=== PATIENT | female | born 1940 | race Caucasian/White ===

== ENCOUNTER 2018-02-19 19:05 | Emergency (ER) | payer OTHER, MEDICARE, BC ==
[2018-02-19] MEDS ORDERED: Acetaminophen/HYDROcodone 325-10 MG Tab PO ONE ×2 (19:06→19:58)
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
[2018-02-19 19:30] LABS: CHLORIDE,CL 103 mmol/L (98-109); SODIUM,NA 144 mmol/L (138-146)
[2018-02-19] MEDS ORDERED: Acetaminophen/HYDROcodone 325-10 MG Tab ONE (20:56)
== END 2018-02-19 21:16 | disposition home or self-care (01) ==
LOC: DL.ED 19:05
DX: S22.43XA Multiple fractures of ribs, bilateral, initial encounter for closed fracture (principal); M25.462 Effusion, left knee; V43.52XA Car driver injured in collision with other type car in traffic accident, initial encounter; Z79.899 Other long term (current) drug therapy
CPT/HCPCS: 36415; 70450; 71250; 72125; 73560; 74176; 80048; 84484; 85025; 93005; 99285; A9270

== ENCOUNTER 2018-12-07 19:07 | Emergency (ER) | payer MEDICARE, BC ==
[2018-12-07] MEDS ORDERED: methylPREDNISolone Sodium Succinate 125 MG/2 ML SDV IM ONE (19:41)
[2018-12-07] MEDS ORDERED: Acetaminophen 325 MG Tab PO ONE (19:44)
--- NOTE | 2018-12-07 19:44 | EDM.PDOC ---
ED HPI GENERAL MEDICAL PROBLEM - General Chief Complaint: General Stated Complaint: LEFT SIDE PAIN [id number] Time Seen by Provider: 12/07/18 19:30 Source of Information: Reports: Patient, Family, RN, RN Notes Reviewed History Limitations: Reports: No Limitations - History of Present Illness INITIAL COMMENTS - FREE TEXT/NARRATIVE: Pt to ER with c/o pain to the low back, left hip radiating through the groin and down the anterior left thigh. She states it began about 1100 today while she was sitting. Patient states she has not had this pain before. She rates the pain 04/09. Patient states she took Tylenol about 1100. She denies any trauma, falls. She states she takes Plavix for a stroke in the past. Patient denies N/ V. States she struggles with diarrhea and bowel issues regularly. Patient denies fever or chills. Onset: Today, Sudden Duration: Intermittent Location: Reports: Back, Lower Extremity, Left Quality: Reports: Sharp, Stabbing Severity: Moderate Improves with: Reports: None Worsens with: Reports: None Associated Symptoms: Reports: No Other Symptoms Treatments QUILL CLEANER: Reports: Acetaminophen Left Groin Pain Score (Numeric/FACES): 8 - Related Data Allergies Allergy/AdvReac Type Severity Reaction Status Date / Time No Known Allergies Allergy Verified 12/07/18 19:16 Home Meds: Home Meds Calcium Carbonate/Vitamin D3 [Calcium 500-Vit D3 600 Tablet] 1 each PO BID 02/19 [History] Clopidogrel [Plavix] 75 mg PO DAILY 02/19/18 [History] Furosemide 20 mg PO ASDIRECTED 02/19/18 [History] Labetalol HCl [Labetalol] 400 mg PO BID 02/19/18 [History] Levothyroxine 112 mcg PO ACBREAKFAST 02/19/18 [History] Lisinopril 40 mg PO BID 02/19/18 [History] Multivitamin [Daily Multiple Vitamin] 1 tab PO DAILY 02/19/18 [History] Potassium Chloride [Klor-Con M20] 20 meq PO BID 02/19/18 [History] Psyllium Husk [Metamucil] 660 gm PO DAILY 02/19/18 [History] Simvastatin [Zocor] 40 mg PO BEDTIME 02/19/18 [History] amLODIPine Besylate [Amlodipine Besylate] 10 mg PO DAILY 02/19/18 [History] hydroCHLOROthiazide [Hydrochlorothiazide] 12.5 mg PO DAILY 02/19/18 [History] ED ROS GENERAL - Review of Systems Review Of Systems: ROS reveals no pertinent complaints other than HPI. ED EXAM, GENERAL - Physical Exam Exam: See Below Exam Limited By: No Limitations General Appearance: Alert, WD/WN, Mild Distress Eye Exam: Bilateral Eye: EOMI, Normal Inspection Ears: Normal External Exam, Hearing Grossly Normal Nose: Normal Inspection Throat/Mouth: Normal Inspection, Normal Voice, No Airway Compromise Head: Atraumatic, Normocephalic Neck: Normal Inspection, Supple, Non-Tender, Full Range of Motion Respiratory/Chest: No Respiratory Distress, Lungs Clear, Normal Breath Sounds, No Accessory Muscle Use, Chest Non-Tender Cardiovascular: Normal Peripheral Pulses, Regular Rate, Rhythm, No Edema, No Gallop, No JVD, No Murmur, No Rub GI/Abdominal: Normal Bowel Sounds, Soft, Non-Tender, No Organomegaly, No Distention, No Abnormal Bruit, No Mass, Pelvis Stable (Female) Exam: Deferred Rectal (Female) Exam: Deferred Back Exam: Normal Inspection, Decreased Range of Motion, Vertebral Tenderness Extremities: Normal Inspection, No Pedal Edema, Normal Capillary Refill, Leg Pain (left anterior thigh), Limited Range of Motion (left leg) Neurological: Alert, Oriented, CN II-XII Intact, Normal Cognition, Normal Gait, Normal Reflexes, No Motor/Sensory Deficits Psychiatric: Normal Affect, Normal Mood Skin Exam: Warm, Dry, Intact, Normal Color, No Rash Lymphatic: No Adenopathy Course - Vital Signs Last Recorded V/S: Last Vital Signs Temp 98.6 F 12/07/18 19:36 Pulse 67 12/07/18 19:36 Resp 18 12/07/18 19:36 BP 157/75 H 12/07/18 19:36 Pulse Ox 95 12/07/18 19:36 - Orders/Labs/Meds Orders: Active Orders 24 hr Category Date Time Status Hip Min 1V w Pelvis Lt [CR] Stat Exams 12/07/18 19:40 Taken Lumbar Spine 2 or 3V [CR] Stat Exams 12/07/18 19:38 Taken Labs: Laboratory Tests 12/07/18 Range/Units 20:31 Urine Color Yellow (YELLOW) Urine Appearance Clear (CLEAR) Urine pH 7.5 (5.0-9.0) Ur Specific [place] 1.015 (1.005-1.030) Urine Protein Negative (NEGATIVE) Urine Glucose (UA) Negative (NEGATIVE) Urine Ketones Negative (NEGATIVE) Urine Occult Blood Negative (NEGATIVE) Urine Nitrite Negative (NEGATIVE) Urine Bilirubin Negative (NEGATIVE) Urine Urobilinogen 0.2 (0.2-1.0) mg/dL Ur Leukocyte Esterase Negative (NEGATIVE) Meds: Medications Discontinued Medications Generic Name Dose Route Start Last Admin Trade Name Sosa PRN Reason Stop Dose Admin Acetaminophen 650 mg 12/07/18 19:44 12/07/18 19:59 Tylenol PO 12/07/18 19:45 650 mg NOW ONE Administration Cyclobenzaprine HCl Confirm 12/07/18 20:52 Flexeril Administered 12/07/18 20:53 Dose 20 mg .ROUTE .STK-MED ONE Methylprednisolone Sodium Succinate 125 mg 12/07/18 19:41 12/07/18 20:00 Solu-Medrol IM 12/07/18 19:42 125 mg ONETIME ONE Administration - Radiology Interpretation Free Text/Narrative:: Lumbar Spine xray: FINDINGS: Bones/joints: Joint space narrowing in the left hip joint with moderate osteophytosis. Right hip is normal. No fractures or dislocations. Soft tissues: Normal. IMPRESSION: moderate left hip arthritis. Thank you for allowing us to participate in the care of your patient. Dictated and Authenticated by: Colton Grier MD 12/07/2018 8:19 PM Central Time ([place] & [place]) Left hip/pelvis xray: FINDINGS: Vertebrae: Diffuse degenerative disc disease and facet arthrosis. No compression or fracture. Vasculature: Atherosclerosis. Soft tissues: Normal. IMPRESSION: Degenerative changes. No acute finding Thank you for allowing us to participate in the care of your patient. Dictated and Authenticated by: Colton Grier MD 12/07/2018 8:18 PM Central Time ([place] & [place]) See rad report Departure - Departure Time of Disposition: 20:27 Disposition: Home, Self-Care 01 Condition: Fair Clinical Impression: Lumbosacral radiculopathy, Arthritis of left hip - Discharge Information *PRESCRIPTION DRUG MONITORING PROGRAM REVIEWED*: No *COPY OF PRESCRIPTION DRUG MONITORING REPORT IN PATIENT AILYN: No Instructions: Arthritis, [id number], Back Exercises, [id number], Lumbosacral Radiculopathy, Heat Therapy, [id number] Referrals: PCP,None [Ordering Only Provider] - Forms: ED Department Discharge Additional Instructions: Continue to use tylenol as directed for pain RX: Prednisone, Flexeril - My Orders Last 24 Hours: My Active Orders 12/07/18 19:38 Lumbar Spine 2 or 3V [CR] Stat 12/07/18 19:40 Hip Min 1V w Pelvis Lt [CR] Stat - Assessment/Plan Last 24 Hours: My Active Orders 12/07/18 19:38 Lumbar Spine 2 or 3V [CR] Stat 12/07/18 19:40 Hip Min 1V w Pelvis Lt [CR] Stat
[2018-12-07] MEDS ORDERED: Cyclobenzaprine 10 MG Tab ONE (20:52)
== END 2018-12-07 20:57 | disposition home or self-care (01) ==
LOC: DL.ED 19:07
DX: M54.16 Radiculopathy, lumbar region (principal); M16.12 Unilateral primary osteoarthritis, left hip; Z79.01 Long term (current) use of anticoagulants; Z79.899 Other long term (current) drug therapy
CPT/HCPCS: 72100; 73501; 81003; 96372; 99284; A9270; J2930

== ENCOUNTER 2020-11-03 09:30 | Emergency (ER) | payer MEDICARE, BC ==
--- NOTE | 2020-11-03 10:41 | EDM.PDOC ---
Scribed by Jovanna Che 11/03/20 1039 for Gualberto Costa MD ED HPI GENERAL MEDICAL PROBLEM - General Chief Complaint: ENT Problem Stated Complaint: RIGHT EAR PLUGGED DIZZINESS Time Seen by Provider: 11/03/20 10:16 Source of Information: Reports: Patient, RN, RN Notes Reviewed History Limitations: Reports: No Limitations - History of Present Illness INITIAL COMMENTS - FREE TEXT/NARRATIVE: Patient presents to ED by POV stating her right ear has been plugged for 2 weeks. She has crackles at times and dizzy at times with the ear problems. She states she is not dizzy at present. She tried to go to [facility] urgent care today, not open. She has tried OTC drops. She denies pain or fever. Onset: Gradual Duration: Constant Location: Reports: Other (right ear) Quality: Reports: Ache Severity: Moderate Improves with: Reports: None Worsens with: Reports: None Associated Symptoms: Reports: No Other Symptoms - Related Data Allergies Allergy/AdvReac Type Severity Reaction Status Date / Time No Known Allergies Allergy Verified 11/03/20 09:59 Home Meds: Home Meds Calcium Carbonate/Vitamin D3 [Calcium 500-Vit D3 600 Tablet] 1 each PO BID 02/19/18 [History] Clopidogrel [Plavix] 75 mg PO DAILY 02/19/18 [History] Furosemide 20 mg PO ASDIRECTED 02/19/18 [History] Labetalol HCl [Labetalol] 400 mg PO BID 02/19/18 [History] Levothyroxine 112 mcg PO ACBREAKFAST 02/19/18 [History] Lisinopril 40 mg PO BID 02/19/18 [History] Multivitamin [Daily Multiple Vitamin] 1 tab PO DAILY 02/19/18 [History] Potassium Chloride [Klor-Con M20] 20 meq PO BID 02/19/18 [History] Psyllium Husk [Metamucil] 660 gm PO DAILY 02/19/18 [History] Simvastatin [Zocor] 40 mg PO BEDTIME 02/19/18 [History] amLODIPine Besylate [Amlodipine Besylate] 10 mg PO DAILY 02/19/18 [History] hydroCHLOROthiazide [Hydrochlorothiazide] 12.5 mg PO DAILY 02/19/18 [History] Past Medical History HEENT History: Reports: Impaired Vision Other HEENT History: wears glasses Cardiovascular History: Reports: CAD, High Cholesterol, Hypertension Respiratory History: Reports: None Gastrointestinal History: Reports: Chronic Constipation Genitourinary History: Reports: None ERP IMPLEMENTATION CONSULTANT History: Reports: Musculoskeletal History: Reports: Arthritis Neurological History: Reports: None Psychiatric History: Reports: None Endocrine/Metabolic History: Reports: Hypothyroidism Hematologic History: Reports: None Immunologic History: Reports: None Oncologic (Cancer) History: Reports: Thyroid Dermatologic History: Reports: None - Infectious Disease History Infectious Disease History: Reports: Chicken Pox, Hepatitis A, Measles, Mumps Social & Family History - Family History Family Medical History: No Pertinent Family History - Tobacco Use Tobacco Use Status *Q: Never Tobacco User Second Hand Smoke Exposure: No - Caffeine Use Caffeine Use: Reports: Coffee - Recreational Drug Use Recreational Drug Use: No ED ROS ENT - Review of Systems Review Of Systems: Comprehensive ROS is negative, except as noted in HPI. ED EXAM, ENT - Physical Exam Exam: See Below Exam Limited By: No Limitations General Appearance: Alert, WD/WN, No Apparent Distress Eye Exam: Bilateral Eye: Normal Inspection Ears: Normal External Exam, Normal Canal, Hearing Loss (subjective, right side only), TM Bulging (Right with air fluid level, no erythema, no perf.). No: Mastoid Swelling, Mastoid Tenderness, Canal Discharge, Canal Material Nose: Normal Inspection Mouth/Throat: Normal Inspection Head: Atraumatic, Normocephalic Neck: Normal Inspection, Full Range of Motion. No: Lymphadenopathy (L), Lymphadenopathy (R) Respiratory/Chest: No Respiratory Distress Neurological: Alert, Oriented, CN II-XII Intact, Normal Cognition, Normal Gait, No Motor/Sensory Deficits Psychiatric: Normal Mood Skin: Warm, Dry, Intact, Normal Color, No Rash Course - Vital Signs Last Recorded V/S: Last Vital Signs Temp 97.4 F 11/03/20 09:55 Pulse 63 11/03/20 09:55 Resp 16 11/03/20 09:55 BP 164/75 H 11/03/20 09:55 Pulse Ox 98 11/03/20 09:55 Departure - Departure Time of Disposition: 10:35 Disposition: Home, Self-Care 01 Condition: Good Clinical Impression: Barotitis media Qualifiers: Encounter type: initial encounter Qualified Code(s): T70.0XXA - Otitic barotrauma, initial encounter Acute serous otitis media of right ear Qualifiers: Recurrence: non-recurrent Qualified Code(s): H65.01 - Acute serous otitis media, right ear - Discharge Information *PRESCRIPTION DRUG MONITORING PROGRAM REVIEWED*: Not Applicable *COPY OF PRESCRIPTION DRUG MONITORING REPORT IN PATIENT AILYN: Not Applicable Instructions: Eustachian Tube Dysfunction, Ear Barotrauma, Adult Forms: ED Department Discharge Additional Instructions: Rx: Dexamethasone 4mg Use over the counter Coricidin HBP for the next one week, or until the ear symptoms resolve. Follow direction on package for dosing and precautions. Follow up in clinic if not improved in 3 to 4 days. Consider a referral to Ear/Nose/Throat specialist if symptoms persist. Sepsis Event Note (ED) - Evaluation Sepsis Screening Result: No Definite Risk - Focused Exam Vital Signs: Vital Signs Temp Pulse Resp BP Pulse Ox 11/03/20 09:55 97.4 F 63 16 164/75 H 98 I have read and agree with the documentation that has been completed regarding this visit. By signing this record, I attest that the documentation was completed in my physical presence and is an accurate record of the encounter.
== END 2020-11-03 10:49 | disposition home or self-care (01) ==
LOC: DL.ED 09:30
DX: T70.0XXA Otitic barotrauma, initial encounter (principal); H65.01 Acute serous otitis media, right ear; I25.10 Atherosclerotic heart disease of native coronary artery without angina pectoris; E78.00 Pure hypercholesterolemia, unspecified; I10 Essential (primary) hypertension; E03.9 Hypothyroidism, unspecified; Z79.02 Long term (current) use of antithrombotics/antiplatelets; Z79.899 Other long term (current) drug therapy
CPT/HCPCS: 99283